=== PATIENT | male | born 1990 | race Caucasian/White ===

== ENCOUNTER 2020-04-25 12:30 | Emergency (ER) | payer SELFPAY ==
[~2020-04-25] VITALS: Ht 170.2 cm; Wt 80.0 kg
[2020-04-25] MEDS ORDERED: DEXAMETHASONE 4MG TABLET PO ONE (13:30)
[2020-04-25] MEDS ORDERED: IPRATROPIUM/ALBUTEROL 0.5-3(2.5)MG/3ML NEB HHN ONE (13:30)
[2020-04-25 14:33] VITALS: BP 144/98
== END 2020-04-25 14:43 | disposition home or self-care (01) ==
LOC: ER 12:30
DX: J45.901 Unspecified asthma with (acute) exacerbation (principal)
CPT/HCPCS: 94640; 99283; J8540; Z7610